=== PATIENT | male | born 1995 | race Caucasian/White ===

== ENCOUNTER 2018-04-25 09:06 | Emergency (ER) | payer SELFPAY ==
[2018-04-25 09:06] VITALS: BP 147/67; PULSE 89; RESP 18; TEMP 36.1; O2SAT 99; BMI 30.1
--- NOTE | 2018-04-25 09:29 | ED.VISSUMM ---
- ER Visit Summary Date of Service: 04/25/18 Chief Complaint: Blood from left ear History of Present Illness: The patient is a [address] Babb. He reports that in January of last year he got hit in head by a steel wire at work. This required stitches. He had a CAT scan at that time it was unremarkable. Reports that since that time he has had dried blood in his left ear a couple times. Last time this occurred was yesterday. Reports that he has pressure in both ears left greater than right. He has a headache that is a pressure that is 3 out of 10 severity. This began this morning. He has a history of similar headaches. He has not had any head trauma since then. Review of systems: General: No fever, chills, cold sweats. Cardiovascular: No chest pain, palpitations. Respiratory: No cough, shortness of breath, dyspnea on exertion. Gastrointestinal: No abdominal pain, nausea, vomiting, diarrhea, melena, or hematochezia. Genitourinary: No dysuria, frequency, hematuria. Skin: No rash. Neuro: No numbness, weakness. Physical Examination: Vitals: Stable. Afebrile. General: Well-nourished and well-developed. Head: Normocephalic atraumatic. HEENT: Right TM is within normal limits. Left TM is obscured by cerumen. There is an abrasion to the inferior portion of the external auditory canal with dried blood. There is no swelling or exudate present. Neck: Supple, no lymphadenopathy. No JVD. Nontender. Cardiovascular: Regular rate and rhythm. No murmurs. Respiratory: No respiratory distress. Clear to auscultation bilaterally. Abdominal: Soft, nontender, nondistended, normal bowel sounds. No guarding, rebound, or peritoneal signs. Back: Nontender. Extremities: Nontender, no edema. Skin: Normal color, no rash. Neurologic: Alert and oriented ?3. Cranial nerves II through XII are intact. Normal strength and sensation. Psych: Normal affect. Emergency Department Course and Treatment: Patient refused irrigation or pain medications. He did have Cortisporin otic placed to prevent development of an otitis externa. Treatment Plan: Patient will be discharged instructions to get Debrox at the store and use this to remove the earwax. Be placed on Cortisporin otic at home. Instructed to follow-up his primary care physician 1 week if not improving. Return to the emergency department for any worsening symptoms. Disposition: To home in improved and stable condition. Impression: 1. Cerumen impaction on left. 2. Abrasion left external auditory canal. This note was generated with [employer] dictation software. It may contain incorrect words, spelling, and punctuation that were not noted in review of the chart prior to signing ED Disposition - Plan for ED Patient: Chief Complaint: Head Injury Instructions: ED Cerumen Impaction, Home Care Referrals: Romel Sunshine [Primary Care Provider] - 1 Week Additional Instructions: Get a Debrox earwax removal kit (or something similar).
[2018-04-25] MEDS: Neomycin Sulfate/Polymyxin/Hc Susp 10 ML Bottle 4 DRP OTIC (10:00)
== END 2018-04-25 10:11 | disposition home or self-care (01) ==
LOC: ED 09:51
PROVIDERS: Emergency Provider Emergency Medicine
DX: S00.412A Abrasion of left ear, initial encounter (principal); H61.22 Impacted cerumen, left ear; X58.XXXA Exposure to other specified factors, initial encounter; Y93.9 Activity, unspecified; Y92.9 Unspecified place or not applicable; Y99.9 Unspecified external cause status; R51 Headache; F17.220 Nicotine dependence, chewing tobacco, uncomplicated
CPT/HCPCS: 99282